=== PATIENT | female | born 1965 | race Caucasian/White ===

== ENCOUNTER 2021-10-30 07:57 | Outpatient (CLI) | payer MEDICARE, OTHER, SELFPAY ==
--- NOTE | 2021-10-30 09:15 | CRLHL7_ITS ---
For Patients: As a result of the Century Cures Act, medical imaging exams and procedure reports are released immediately into your electronic medical record. You may view this report before your referring provider. If you have questions, please contact your health care provider. INDICATION: Right lower quadrant abdominal pain. Possible duodenal stricture. History of a right nephrectomy. Previous cholecystectomy. Two level cervical spine fusion. TECHNIQUE: Single and double contrast esophagram/upper GI. Small-bowel follow-through. FINDINGS: Normal esophagus. No stricture, mass, obstetric or obstruction. No holdup of barium. No esophageal dysmotility. No hiatal hernia. Reflux could not be elicited in the upright or recumbent position without or with Valsalva maneuvers. No hiatal hernia. The stomach is within normal limits. The duodenum is unremarkable. There is no evidence for duodenal mass, stricture, or filling defect. No convincing evidence for duodenitis or ulceration. The jejunum and ileum including the terminal ileum are unremarkable. Normal small bowel transit time. 3 minutes 32 seconds fluoroscopy time utilized. IMPRESSION : Normal upper GI and small-bowel follow-through. Dictated by Grant Diaz MD @ 10/30/2021 10:29:54 AM (Electronically Signed)
== END 2021-10-30 07:58 | disposition home or self-care (01) ==
LOC: RAD 08:05
PROVIDERS: Visit Provider Internal Medicine Gastroenterology
DX: R10.31 Right lower quadrant pain (principal)
CPT/HCPCS: 74246; 74248